=== PATIENT | female | born 1970 | race Asian ===

== ENCOUNTER 2021-10-24 15:34 | Emergency (ER) | payer MEDICAID ==
[~2021-10-24] VITALS: Ht 162.6 cm; Wt 60.8 kg
[2021-10-24 15:53] VITALS: BP 102/56
--- NOTE | 2021-10-24 16:10 | NUR ---
Patient ambulated to bed 07 with steady/even gait.
--- NOTE | 2021-10-24 16:15 | NUR ---
50 y/o F BIB self from home c/o dizziness, nausea, headache. Patient A&Ox4, ambulatory, states symptoms began 4 days ago and worsens during nighttime and getting out of bed. States dizziness with surroundings spinning around her; worsens with lifting/bending over, alleviates with rest. Patient reports headache 6/10, pulling/constant, non-radiating pain. Denies vomiting, fever, chills, chest pain, SOB, dysuria, sick household members. Bed locked in lowest position, side rails x 1. PMH/Sx/Meds: hypotension NKDA
--- NOTE | 2021-10-24 16:15 | NUR ---
Dr. Vega is evaluating patient at bedside
[2021-10-24] MEDS ORDERED: NACL 0.9% 1,000 ML IV ONE (16:25)
--- NOTE | 2021-10-24 16:45 | NUR ---
Lab at bedside
[2021-10-24 16:58] LABS: BASOPHILS % (AUTO) 0.8 % (0.0-2.0); EOSINOPHILS # (AUTO) 0.1 K/uL (0-0.4); EOSINOPHILS % (AUTO) 1.6 % (0.0-4.0); HEMOGLOBIN 11.6 g/dL (12.0-16.0); LYMPHOCYTES # (AUTO) 2.2 K/uL (2.5-16.5); LYMPHOCYTES % (AUTO) 36.8 % (20.5-51.1); MEAN CORPUSCULAR HEMOGLOBIN 33 pg (27-31); MEAN CORPUSCULAR HGB CONC 34 g/dL (33-37); MEAN CORPUSCULAR VOLUME 96.1 fL (80-94); MONOCYTES # (AUTO) 0.3 K/uL (0.8-1.0); MONOCYTES % (AUTO) 5.6 % (1.7-9.3); NEUTROPHILS # (AUTO) 3.4 K/uL (1.8-7.7); NEUTROPHILS % (AUTO) 55.2 % (42.2-75.2); PLATELET COUNT (AUTO) 197 K/uL (140-450); RED BLOOD CELL COUNT(AUTO) 3.54 MIL/uL (4.20-5.40); RED CELL DISTRIBUTION WIDTH 12.6 % (11.6-13.7); WHITE BLOOD COUNT (AUTO) 6.1 K/uL (4.8-10.8)
[2021-10-24 17:48] VITALS: BP 98/53
[2021-10-24] MEDS ORDERED: ACETAMINOPHEN EXTRA STRENGTH 500 MG TAB PO ONE (17:50)
[2021-10-24 18:06] LABS: ALBUMIN 2.9 g/dL (3.4-5.0); ANION GAP 9.1 (8-16); CREATININE 0.7 mg/dL (0.6-1.3); POTASSIUM 4.1 mmol/L (3.5-5.1); TOTAL BILIRUBIN 0.2 mg/dL (0.0-1.0)
[2021-10-24] MEDS ORDERED: FERR240T12 PO (18:28)
--- NOTE | 2021-10-24 18:37 | NUR ---
Dr. Vega is reevaluating patient at bedside
--- NOTE | 2021-10-24 18:52 | NUR ---
Patient discharged with v/s stable. Written and verbal after care instructions given and explained: anemia, orthostatic hypotension. Patient alert, oriented and verbalized understanding of instructions. Ambulatory with steady gait. All questions addressed prior to discharge. ID band removed. Patient advised to follow up with PMD. Rx of Ferrous Gluconate given. Patient educated on indication of medication including possible reaction and side effects. Opportunity to ask questions provided and answered.
== END 2021-10-24 18:52 | disposition home or self-care (01) ==
LOC: MED 15:34
DX: D64.9 Anemia, unspecified (principal); I95.1 Orthostatic hypotension; R42 Dizziness and giddiness; Z79.899 Other long term (current) drug therapy
CPT/HCPCS: 36415; 80053; 85025; 93005; 96360; 96361; 99284; J7030

== ENCOUNTER 2022-05-05 14:11 | Emergency (ER) | payer MEDICAID ==
[~2022-05-05] VITALS: Ht 162.6 cm; Wt 63.5 kg
[~2022-05-05 14:11] MED LIST: FERR240T12 PO
[2022-05-05 14:16] VITALS: BP 109/66
--- NOTE | 2022-05-05 14:37 | NUR ---
ekg done in triage room
--- NOTE | 2022-05-05 14:38 | NUR ---
51/f walked in c/o heart palpitation accompanied by left sided chest pain onset 0400 today. denies any pain or discomfort at this time. aao4, ambulatory, vitals stable. PMH: DENIES
--- NOTE | 2022-05-05 14:38 | NUR ---
pt ambulated to bed 2
[2022-05-05 14:54] VITALS: BP 95/56
[2022-05-05] MEDS ORDERED: IBUP-2213 PO (15:42)
[2022-05-05] MEDS ORDERED: CIPR500T4 PO (15:42)
--- NOTE | 2022-05-05 15:50 | NUR ---
Patient discharged with v/s stable. Written and verbal after care instructions given and explained. Patient verbalized understanding. Ambulatory with steady gait. All questions addressed prior to discharge. Advised to follow up with PMD.
== END 2022-05-05 15:50 | disposition home or self-care (01) ==
LOC: MED 14:11
DX: R07.9 Chest pain, unspecified (principal); R00.2 Palpitations; N39.0 Urinary tract infection, site not specified; Z79.899 Other long term (current) drug therapy; Z98.890 Other specified postprocedural states
CPT/HCPCS: 81002; 81025; 93005; 99283